=== PATIENT | female | born 1965 | race Caucasian/White ===

== ENCOUNTER 2016-12-23 08:41 | Emergency (ER) | payer SELFPAY ==
[~2016-12-23] VITALS: Ht 162.6 cm; Wt 66.0 kg
[~2016-12-23 08:41] MED LIST: BENA25TA8 PO; CETI10 PO; CINN500C7 PO; CLOB-50 TOP; CO Q200C3 PO; CRAN1TAB2 PO; DICY20TA10 PO; FLUT1SPR9; MILK1CAP; OMEG5CAP; PROBCAP4 PO; PROC2.5C PR; PSEU30TA PO; TURM500C3; ZOCO40TA PO; [UNRECOGNIZED DRUG - CODE]
[2016-12-23 08:43] VITALS: BP 112/72; PULSE 83; RESP 16; TEMP 97.8; O2SAT 100
[2016-12-23] MEDS ORDERED: CO Q10CA PO (08:53)
[2016-12-23] MEDS ORDERED: ASCO100016 PO (08:53)
[2016-12-23] MEDS ORDERED: DICY20TA10 PO (08:53)
[2016-12-23] MEDS ORDERED: MELAPOW2 PO (08:53)
[2016-12-23] MEDS ORDERED: SUDO60TA2 PO (08:53)
[2016-12-23] MEDS ORDERED: FLUT1SPR5 EACH NARE (08:53)
[2016-12-23] MEDS ORDERED: CETI10CA3 PO (08:53)
[2016-12-23] MEDS ORDERED: FISHCAP4 PO (08:53)
--- NOTE | 2016-12-23 09:07 | RADRPT ---
EXAM DATE/TIME: 12/23/2016 08:52 [facility] COMPARISON: CHEST PA & LAT, July 11, 2015, 9:20. INDICATIONS : Cough, congestion, short of breath, back pain x 1 week. MEDICAL HISTORY : Diverticulitis. Hypercholesterolemia. Irritable bowel syndrome. Asthma. Colitis. Gastritis. Smoke r. SURGICAL HISTORY : Tonsillectomy. Hysterectomy. ENCOUNTER: Initial ACUITY: 1 week PAIN SCORE: 7/10 LOCATION: posterior chest FINDINGS: PA and lateral views of the chest demonstrate a normal-sized cardiac silhouette. There is no effusion , consolidation, or pneumothorax. The bones and soft tissues demonstrate no acute abnormality. There are mild degenerative changes of the thoracic spine. CONCLUSION: No acute cardiopulmonary abnormality is identified. Karlos Hobson MD on December 23, 2016 at 9:05 Board Certified Radiologist. This report was verified electronically.
[2016-12-23] MEDS ORDERED: MEDR4PAK PO (09:29)
[2016-12-23] MEDS ORDERED: ALBU6.7H INH (09:29)
[2016-12-23] MEDS ORDERED: DOXY100C PO (09:29)
[2016-12-23] MEDS ORDERED: ALBU0.08 NEB (09:29)
[2016-12-23] MEDS ORDERED: RESP: ALBUTEROL 2.5 MG/IPRATROPIUM 0.5 MG NEB (SCH) INH ONE (09:30)
[2016-12-23] MEDS ORDERED: predniSONE 20 MG TAB PO ONE (09:30)
--- NOTE | 2016-12-23 09:30 | PD ---
HPI Chief Complaint: Respiratory Symptoms Time Seen by Provider: 08:48 Travel History International Travel<30 days: No Contact w/Intl Traveler<30days: No Traveled to known affect area: No History of Present Illness HPI C/O 1 WEEK OF DRY COUGH, NOT IMPROVING, OUT OF ALBUTEROL (HAS NEBULIZER MACHINE AT HOME). STATES THAT SHE IS A SMOKER, AND HAS DECREASED HER SMOKING DUE TO SOB /COUGH. DENIES FEVER/GRACE/N/V/D/CP/ABD PAIN PFSH Past Medical History High Cholesterol: Yes Diminished Hearing: No Diverticulitis: Yes Gastrointestinal Disorders: Yes (COLITIS, GASTRITIS) Reproductive: Yes (BACTERIAL VAGINAL INFECTION) Migraines: Yes ?: Not : 5 Para: 3 Miscarriage: 1 : 1 Past Surgical History Gynecologic Surgery: Yes (FIBROIDS) Hysterectomy: Yes (PARTIAL; HAS ONE OVARY) Tonsillectomy: Yes Social History Alcohol Use: No Tobacco Use: Yes (12 cig/day) Substance Use: No Allergies-Medications (Allergen,Severity, Reaction): Coded Allergies: Percocet (Verified Allergy, Severe, Itching, 12/23/16) Macrobid (Verified Allergy, Intermediate, ITCHING, 12/23/16) Reported Meds & Prescriptions Reported Meds & Active Scripts Active Albuterol Neb (Albuterol Sulfate) 2.5 Mg/3 Ml Neb 2.5 Mg NEB QID NEB Medrol Dosepak (Methylprednisolone) 4 Mg Dspk 4 Mg PO DIRECTED Per Pharmacist direction Doxycycline Hyclate 100 Mg Cap 100 Mg PO BID Proventil Hfa 6.7 GM Inh (Albuterol Sulfate) 90 Mcg/Act Aer 1 Puff INH Q4H PRN Reported Flonase Nasal [place] (Fluticasone Nasal [place]) 50 Mcg/Act [place] 50 Mcg EACH NARE BID Vitamin C (Ascorbic Acid) 1,000 Mg Tablet.er 1 Tab PO DAILY Melatonin (Melatonin (Bulk)) 1 Pow Pow 1 Tab PO HS Zyrtec (Cetirizine HCl) 10 Mg Capsule 1 Tab PO DAILY Co Q 10 (Coenzyme Q10 (Ubidecarenone)) 10 Mg Cap 20 Mg PO DAILY Fish Oil + D3 (Fish Oil-Cholecalciferol) 1,200-1,000 Mg-Unit Cap 360 Mg PO DAILY Dicyclomine (Dicyclomine HCl) 20 Mg Tab 20 Mg PO HS Pseudoephedrine (Pseudoephedrine HCl) 60 Mg Tab 120 Mg PO DAILY Review of Systems Except as stated in HPI: all other systems reviewed are Neg Respiratory: Positive: Cough, Wheezing Physical Exam Narrative GENERAL: SKIN: Warm and dry. HEAD: Atraumatic. Normocephalic. EYES: Pupils equal and round. No scleral icterus. No injection or drainage. ENT: No nasal bleeding or discharge. Mucous membranes pink and moist. NECK: Trachea midline. No JVD. CARDIOVASCULAR: Regular rate and rhythm. RESPIRATORY: No accessory muscle use. Clear to auscultation. Breath sounds equal bilaterally. MILD WHEEZING BILATERALLY GASTROINTESTINAL: Abdomen soft, non-tender, nondistended. Hepatic and splenic margins not palpable. MUSCULOSKELETAL: Extremities without clubbing, cyanosis, or edema. No obvious deformities. NEUROLOGICAL: Awake and alert. No obvious cranial nerve deficits. Motor grossly within normal limits. Five out of 5 muscle strength in the arms and legs. Normal speech. PSYCHIATRIC: Appropriate mood and affect; insight and judgment normal. Data Data Last Documented VS Vital Signs Date Time Temp Pulse Resp B/P Pulse Ox O2 Delivery O2 Flow Rate FiO2 12/23/16 08:43 97.8 83 16 112/72 100 Orders Chest, Pa & Lat (12/23/16 08:48) Prednisone (Deltasone) (12/23/16 09:30) Albuterol-Ipratropium Neb (Duoneb Neb) (12/23/16 09:30) MDM Medical Decision Making Medical Screen Exam Complete: Yes Emergency Medical Condition: Yes Medical Record Reviewed: Yes Differential Diagnosis PNA V BRONCHITIS V ASTHMA EXACERBATION Narrative Course xray did not reveal any e/o pna will d/c with steroid, inhaller and abx Diagnosis Primary Impression: ACUTE BRONCHTISI BRONCHOSPASM Scripts Albuterol Neb 2.5 Mg/3 Ml Neb2.5 Mg NEB QID NEB #60 NEBULE Ref 0 Prov:Vikas Olivera MD 12/23/16 Methylprednisolone Dosepak (Medrol Dosepak)4 Mg Dspk4 Mg PO DIRECTED #1 DSPK Per Pharmacist direction Prov:Vikas Olivera MD 12/23/16 Doxycycline Hyclate 100 Mg Gxt832 Mg PO BID #20 CAP Prov:Vikas Olivera MD 12/23/16 Albuterol 6.7 GM Inh (Proventil Hfa 6.7 GM Inh)90 Mcg/Act Aer1 Puff INH Q4H PRN (SHORTNESS OF BREATH) #1 INHALER Prov:Vikas Olivera MD 12/23/16 Disposition: 01 DISCHARGE HOME Condition: Stable Vikas Olivera MD Dec 23, 2016 09:30
== END 2016-12-23 10:00 | disposition home or self-care (01) ==
LOC: PHED 08:41
DX: J45.909 Unspecified asthma, uncomplicated (principal); F17.210 Nicotine dependence, cigarettes, uncomplicated
CPT/HCPCS: 71020; 94664; 99284; J7512

== ENCOUNTER 2017-06-04 09:32 | Emergency (ER) | payer OTHER ==
[~2017-06-04] VITALS: Ht 162.6 cm; Wt 68.6 kg
[~2017-06-04 09:32] MED LIST changes: +ALBU0.08 NEB; +ALBU6.7H INH; +ASCO100029 PO; -BENA25TA8 PO; -CETI10 PO; +CETI10CA3 PO; -CINN500C7 PO; -CLOB-50 TOP; +CO Q10CA PO; -CO Q200C3 PO; -CRAN1TAB2 PO; +DOXY100C PO; +FISHCAP4 PO; +FLUT1SPR5 EACH NARE; -FLUT1SPR9; +MEDR4PAK PO; +MELAPOW2 PO; -MILK1CAP; -OMEG5CAP; -PROBCAP4 PO; -PROC2.5C PR; -PSEU30TA PO; +SUDO60TA2 PO; -TURM500C3; -ZOCO40TA PO; -[UNRECOGNIZED DRUG - CODE]
[2017-06-04 09:35] VITALS: BP 114/74; PULSE 88; RESP 18; TEMP 98.1; O2SAT 97
[2017-06-04 09:49] LABS: BILIRUBIN, URINE NEG (NEG); BLOOD, URINE NEG (NEG); GLUCOSE,URINE NEG (NEG); KETONE, URINE NEG (NEG); NITRITE,URINE NEG (NEG); PH, URINE 5.5 (5.0-8.5); URINE LEUKOCYTE ESTERASE SMALL (NEG)
[2017-06-04] MEDS ORDERED: VARE.5 PO (09:50)
--- NOTE | 2017-06-04 09:50 | PD ---
HPI Chief Complaint: Complaint Time Seen by Provider: 09:47 Travel History International Travel<30 days: No Contact w/Intl Traveler<30days: No Traveled to known affect area: No History of Present Illness HPI 52 YO F presents to the ED for evaluation of ~18 hour history of urinary urgency , increased frequency and dysuria. Dysuria rated 6/10, described as burning. Exacerbated by urination. No alleviating factors reported. Gradual onset yesterday morning. Endorses mild lower abdominal pain and intermittent nausea. The patient denies vomiting, fever, chills, vaginal discharge, back pain. States symptoms are similar to previous UTIs. Treating with cranberry pills at home with no improvement in symptoms. PFSH Past Medical History High Cholesterol: Yes Diminished Hearing: No Diverticulitis: Yes Gastrointestinal Disorders: Yes (COLITIS, GASTRITIS) Reproductive: Yes (BACTERIAL VAGINAL INFECTION) Respiratory: Yes (ASTHMA) Migraines: Yes ?: Not : 5 Para: 3 Miscarriage: 1 : 1 Past Surgical History Gynecologic Surgery: Yes (FIBROIDS) Hysterectomy: Yes (PARTIAL; HAS ONE OVARY) Tonsillectomy: Yes Social History Alcohol Use: No Tobacco Use: No Substance Use: No Allergies-Medications (Allergen,Severity, Reaction): Coded Allergies: acetaminophen (Unverified Allergy, Severe, Itching, 06/04/17) oxycodone (Unverified Allergy, Severe, Itching, 06/04/17) nitrofurantoin (Unverified Allergy, Intermediate, ITCHING, 06/04/17) Reported Meds & Prescriptions Reported Meds & Active Scripts Active Keflex (Cephalexin) 500 Mg Cap 500 Mg PO Q12H 5 Days Reported Chantix (Varenicline) 0.5 Mg Tab Unknown Dose PO BIDPC Days 4-7 Vitamin C (Ascorbic Acid) 1,000 Mg Tablet.er 1 Tab PO DAILY Melatonin (Melatonin (Bulk)) 1 Pow Pow 1 Tab PO HS Review of Systems Except as stated in HPI: all other systems reviewed are Neg Physical Exam Narrative GENERAL: Well-nourished, well-developed white female in no acute distress. SKIN: Focused skin assessment warm/dry. HEAD: Normocephalic. EYES: No scleral icterus. No injection or drainage. NECK: Supple, trachea midline. No JVD or lymphadenopathy. CARDIOVASCULAR: Regular rate and rhythm without murmurs, gallops, or rubs. RESPIRATORY: Breath sounds equal bilaterally. No accessory muscle use. GASTROINTESTINAL: Abdomen soft, nondistended. Mild suprapubic tenderness. Active bowel sounds. MUSCULOSKELETAL: No cyanosis, or edema. BACK: Nontender without obvious deformity. No CVA tenderness. Data Data Last Documented VS Vital Signs Date Time Temp Pulse Resp B/P (MAP) Pulse Ox O2 Delivery O2 Flow Rate FiO2 06/04/17 09:35 98.1 88 18 114/74 (87) 97 Orders Orders Urinalysis - C+S If Indicated (06/04/17 09:34) Urine Culture (06/04/17 09:39) Ed Discharge Order (06/04/17 10:03) Labs Laboratory Tests Test 06/04/17 09:39 Urine Collection Type CLEAN CATCH Urine Color YELLOW Urine Turbidity CLEAR Urine pH 5.5 Urine Specific [place] 1.021 Urine Protein NEG mg/dL Urine Glucose (UA) NEG mg/dL Urine Ketones NEG mg/dL Urine Occult Blood NEG Urine Nitrite NEG Urine Bilirubin NEG Urine Leukocyte Esterase SMALL Urine WBC 20-24 /hpf Urine WBC Clumps FEW Urine Squamous Epithelial Cells 0-5 /hpf Urine Bacteria FEW /hpf Microscopic Urinalysis Comment CULTURE INDICATED Urine Collection Time 09:39 [facility] Medical Decision Making Medical Screen Exam Complete: Yes Emergency Medical Condition: Yes Differential Diagnosis Cystitis versus hemorrhagic cystitis versus pyelonephritis versus other Narrative Course 52 YO F presents to the ED for evaluation of ~18 hour history of urinary urgency , increased frequency and dysuria. Vitals reviewed. Mild suprapubic tenderness on exam. UA positive for leukocyte esterase, wbc's, wbc clumps and bacteria. She is prescribed Keflex 500 mg twice a day 5 days. We discussed reasons to return to the ED. She is stable and discharged home. Diagnosis Primary Impression: Urinary tract infection Qualified Codes: N30.00 - Acute cystitis without hematuria Referrals: Primary Care Physician Patient Instructions: General Instructions, Urinary Tract Infection in Women ( ED) Additional Instructions: Rest, hydrate. Take every pill antibiotic until they are all gone, even if her symptoms resolved. Follow with the primary care provider. Return to the ED for any urgent or emergent medical condition. Med/Other Pt SpecificInfo: Prescription(s) given Scripts Cephalexin (Keflex) 500 Mg Cap 500 MG PO Q12H for Infection for 5 Days, #10 CAP 0 Refills Prov: Leonel Webb MD 06/04/17 Disposition: 01 DISCHARGE HOME Condition: Stable Naa Valdez Jun 04, 2017 09:50
[2017-06-04 09:55] LABS: SQUAMOUS EPITHELIAL CELL URINE 0-5 /hpf (0-5); URINE COLOR YELLOW (YELLW/STRAW); WHITE BLOOD CELL CLUMPS FEW
[2017-06-04 09:56] LABS: BACTERIA, URINE FEW /hpf
[2017-06-04] MEDS ORDERED: CEPH-460 PO (10:01)
== END 2017-06-04 10:11 | disposition home or self-care (01) ==
LOC: PHEFT 09:32
DX: N30.00 Acute cystitis without hematuria (principal); R11.0 Nausea; R10.30 Lower abdominal pain, unspecified; E78.00 Pure hypercholesterolemia, unspecified; J45.909 Unspecified asthma, uncomplicated; B96.20 Unspecified Escherichia coli [E. coli] as the cause of diseases classified elsewhere
CPT/HCPCS: 81001; 87077; 87086; 87186; 99283

== ENCOUNTER 2017-06-22 11:53 | Emergency (ER) | payer OTHER ==
[~2017-06-22] VITALS: Ht 162.6 cm; Wt 68.0 kg
[~2017-06-22 11:53] MED LIST changes: -ALBU0.08 NEB; -ALBU6.7H INH; +CEPH-460 PO; -CETI10CA3 PO; -CO Q10CA PO; -DICY20TA10 PO; -DOXY100C PO; -FISHCAP4 PO; -FLUT1SPR5 EACH NARE; -MEDR4PAK PO; -SUDO60TA2 PO; +VARE.5 PO
[2017-06-22 12:18] VITALS: BP 132/66; PULSE 69; RESP 17; TEMP 98.7; O2SAT 98
[2017-06-22] MEDS ORDERED: PROBCAP15 (13:32)
[2017-06-22] MEDS ORDERED: FISHCAP4 PO (13:32)
[2017-06-22] MEDS ORDERED: SODIUM CHLOR 0.9% 1000 ML INJ 1,000 ML IV SCH (13:38)
--- NOTE | 2017-06-22 13:44 | PD ---
HPI Chief Complaint: Abdominal Pain Time Seen by Provider: 13:38 Travel History International Travel<30 days: No Contact w/Intl Traveler<30days: No Traveled to known affect area: No History of Present Illness HPI 52-year-old female patient presents to the ER today with 1 week history of constipation followed by a large bowel movement this morning, nausea, vomiting, and epigastric and left lower quadrant abdominal pain which she currently measures at a 7 out of 10. She denies any fevers, coughing, cold symptoms, diarrhea, or any other issues. She states that the pain has been going on the whole week and is not going away. She has taken Mylanta and different over-the- counter remedies and Bentyl as well without significant relief. Modifying Factors: None Associated Signs & Symptoms: Abdominal pain, nausea, vomiting Risk Factors: None PFSH Past Medical History High Cholesterol: Yes Diminished Hearing: No Diverticulitis: Yes Gastrointestinal Disorders: Yes (COLITIS, GASTRITIS) Reproductive: Yes (BACTERIAL VAGINAL INFECTION) Respiratory: Yes (ASTHMA) Migraines: Yes Tetanus Vaccination: > 5 Years Influenza Vaccination: No ?: Not : 5 Para: 3 Miscarriage: 1 : 1 Past Surgical History Gynecologic Surgery: Yes (FIBROIDS) Hysterectomy: Yes (PARTIAL; HAS ONE OVARY) Tonsillectomy: Yes Social History Alcohol Use: No Tobacco Use: No Substance Use: No Allergies-Medications (Allergen,Severity, Reaction): Coded Allergies: acetaminophen (Unverified Allergy, Severe, PT DENIES, 06/22/17) oxycodone (Unverified Allergy, Severe, PT DENIES, 06/22/17) nitrofurantoin (Unverified Allergy, Intermediate, ITCHING, 06/22/17) Reported Meds & Prescriptions Reported Meds & Active Scripts Active Reported Fish Oil + D3 (Fish Oil-Cholecalciferol) 1,200-1,000 Mg-Unit Cap 1 Cap PO DAILY Trubiotics (Probiotic Product) 1.5 Billion Cell Cap Chantix (Varenicline) 0.5 Mg Tab Unknown Dose PO BIDPC Days 4-7 Melatonin (Melatonin (Bulk)) 1 Pow Pow 1 Tab PO HS Review of Systems Except as stated in HPI: all other systems reviewed are Neg Physical Exam Narrative GENERAL: Well-developed middle age female patient currently in mild distress. Awake and oriented 3. SKIN: Focused skin assessment warm/dry. HEAD: Atraumatic. Normocephalic. EYES: Pupils equal and round. No scleral icterus. No injection or drainage. ENT: No nasal bleeding or discharge. Mucous membranes pink and moist. NECK: Trachea midline. No JVD. Supple. CARDIOVASCULAR: Regular rate and rhythm. No murmur appreciated. RESPIRATORY: No accessory muscle use. Clear to auscultation. Breath sounds equal bilaterally. GASTROINTESTINAL: Abdomen soft, epigastric tenderness and mild left lower quadrant and right lower quadrant tenderness without guarding or rebound, nondistended. Hepatic and splenic margins not palpable. MUSCULOSKELETAL: No obvious deformities. No clubbing. No cyanosis. No edema. NEUROLOGICAL: Awake and alert. No obvious cranial nerve deficits. Motor grossly within normal limits. Normal speech. PSYCHIATRIC: Appropriate mood and affect; insight and judgment normal. Data Data Last Documented VS Vital Signs Date Time Temp Pulse Resp B/P (MAP) Pulse Ox O2 Delivery O2 Flow Rate FiO2 06/22/17 14:23 16 99 Room Air 06/22/17 12:18 98.7 69 132/66 (88) Orders Orders Complete Blood Count With Diff (06/22/17 13:38) Comprehensive Metabolic Panel (06/22/17 13:38) Lipase (06/22/17 13:38) Urinalysis - C+S If Indicated (06/22/17 13:38) Ct Abd/Pel W Iv Contrast(Rout) (06/22/17 13:38) Iv Access Insert/Monitor (06/22/17 13:38) Ecg Monitoring (06/22/17 13:38) Oximetry (06/22/17 13:38) Morphine Inj (Morphine Inj) (06/22/17 13:45) Ondansetron Inj (Zofran Inj) (06/22/17 13:45) Sodium Chlor 0.9% 1000 Ml Inj (Ns 1000 M (06/22/17 13:38) Sodium Chloride 0.9% Flush (Ns Flush) (06/22/17 13:45) Iohexol 350 Inj (Omnipaque 350 Inj) (06/22/17 14:43) Labs Laboratory Tests Test 06/22/17 13:50 White Blood Count 6.9 TH/MM3 Red Blood Count 4.21 MIL/MM3 Hemoglobin 12.7 GM/DL Hematocrit 39.7 % Mean Corpuscular Volume 94.3 FL Mean Corpuscular Hemoglobin 30.3 PG Mean Corpuscular Hemoglobin Concent 32.1 % Red Cell Distribution Width 12.9 % Platelet Count 249 TH/MM3 Mean Platelet Volume 8.3 FL Neutrophils (%) (Auto) 54.4 % Lymphocytes (%) (Auto) 29.8 % Monocytes (%) (Auto) 12.4 % Eosinophils (%) (Auto) 2.9 % Basophils (%) (Auto) 0.5 % Neutrophils # (Auto) 3.8 TH/MM3 Lymphocytes # (Auto) 2.0 TH/MM3 Monocytes # (Auto) 0.8 TH/MM3 Eosinophils # (Auto) 0.2 TH/MM3 Basophils # (Auto) 0.0 TH/MM3 CBC Comment DIFF FINAL Differential Comment Urine Collection Type CLEAN CATCH Urine Color YELLOW Urine Turbidity SLIGHT Urine pH 7.0 Urine Specific [place] 1.018 Urine Protein NEG mg/dL Urine Glucose (UA) NEG mg/dL Urine Ketones NEG mg/dL Urine Occult Blood NEG Urine Nitrite NEG Urine Bilirubin NEG Urine Leukocyte Esterase NEG Urine Squamous Epithelial Cells 6-8 /hpf Urine Amorphous Sediment LARGE Microscopic Urinalysis Comment CULT NOT INDICATED Urine Collection Time 1350 Blood Urea Nitrogen 19 MG/DL Creatinine 0.70 MG/DL Random Glucose 90 MG/DL Total Protein 7.5 GM/DL Albumin 3.8 GM/DL Calcium Level 9.2 MG/DL Alkaline Phosphatase 86 U/L Aspartate Amino Transf (AST/SGOT) 21 U/L Alanine Aminotransferase (ALT/SGPT) 29 U/L Total Bilirubin 0.2 MG/DL Sodium Level 140 MEQ/L Potassium Level 4.2 MEQ/L Chloride Level 106 MEQ/L Carbon Dioxide Level 29.7 MEQ/L Anion Gap 4 MEQ/L Estimat Glomerular Filtration Rate 88 ML/MIN Lipase 154 U/L [facility] Medical Decision Making Medical Screen Exam Complete: Yes Emergency Medical Condition: Yes Medical Record Reviewed: Yes Interpretation(s) Laboratory Tests Test 06/22/17 13:50 Monocytes (%) (Auto) 12.4 % (0.0-8.0) Urine Squamous Epithelial Cells 6-8 /hpf (0-5) Blood Urea Nitrogen 19 MG/DL (7-18) Anion Gap 4 MEQ/L (5-15) Estimat Glomerular Filtration Rate 88 ML/MIN (>89) Last 24 hours Impressions Abdomen/Pelvis CT 06/22/17 0988 Signed Impressions: Service Date/Time: Thursday, June 22, 2017 14:36 - CONCLUSION: 1. No acute inflammatory process. Jeffrey Santamaria MD Differential Diagnosis Abdominal pain, nausea and vomiting: Gastritis versus gastroenteritis versus cholecystitis versus diverticulitis versus UTI versus appendicitis Narrative Course Lab work is fairly unremarkable. Influenza testing is negative. CAT scan did not show any signs of acute intra-abdominal processes. At this point, my plan would be to release her with symptomatic relief or pain and follow-up to primary care physician. The plan was discussed with her and she states understanding. Diagnosis Primary Impression: Abdominal pain Med/Other Pt SpecificInfo: Prescription(s) given Scripts Dicyclomine (Bentyl) 10 Mg Cap 10 MG PO TID Y for Bowel Management, #15 CAP 0 Refills Prov: Alan Llanos MD 06/22/17 Disposition: 01 DISCHARGE HOME Condition: Stable Alan Llanos MD Jun 22, 2017 13:44
[2017-06-22] MEDS ORDERED: SODIUM CHLORIDE 0.9% FLUSH 10 ML FLUSH IV FLUSH PRN (13:45)
[2017-06-22] MEDS ORDERED: MORPHINE SULFATE 4 MG/ML INJ IV PUSH ONE (13:45)
[2017-06-22] MEDS ORDERED: ONDANSETRON HCL 4 MG/2 ML VIAL IVP ONE (13:45)
[2017-06-22 14:02] LABS: AUTOMATED NEUTROPHIL # 3.8 TH/MM3 (1.8-7.7); BASOPHIL % 0.5 % (0.0-2.0); EOSINOPHIL # 0.2 TH/MM3 (0-0.4); EOSINOPHIL % 2.9 % (0.0-4.0); HEMATOCRIT 39.7 % (35.0-46.0); HEMOGLOBIN 12.7 GM/DL (11.6-15.3); LYMPH % 29.8 % (9.0-44.0); MEAN CELL VOLUME 94.3 FL (80.0-100.0); MEAN CORPUSCULAR HEMOGLOBIN 30.3 PG (27.0-34.0); MEAN CORPUSCULAR HGB CONC 32.1 % (32.0-36.0); MEAN PLATELET VOLUME 8.3 FL (7.0-11.0); MONO % 12.4 % (0.0-8.0); MONOCYTE # 0.8 TH/MM3 (0-0.9); NEUT % 54.4 % (16.0-70.0); PLATELET COUNT 249 TH/MM3 (150-450); RED BLOOD COUNT 4.21 MIL/MM3 (4.00-5.30); RED CELL DISTRIBUTION WIDTH 12.9 % (11.6-17.2); WHITE BLOOD COUNT 6.9 TH/MM3 (4.0-11.0)
[2017-06-22 14:09] LABS: BILIRUBIN, URINE NEG (NEG); BLOOD, URINE NEG (NEG); GLUCOSE,URINE NEG (NEG); KETONE, URINE NEG (NEG); NITRITE,URINE NEG (NEG); URINE LEUKOCYTE ESTERASE NEG (NEG)
[2017-06-22 14:12] LABS: CHLORIDE 106 MEQ/L (98-107); SODIUM (NA) 140 MEQ/L (136-145)
[2017-06-22 14:13] LABS: URINE COLOR YELLOW (YELLW/STRAW)
[2017-06-22 14:15] LABS: CALCIUM 9.2 MG/DL (8.5-10.1)
[2017-06-22 14:16] LABS: ALBUMIN 3.8 GM/DL (3.4-5.0); BICARBONATE 29.7 MEQ/L (21.0-32.0); BLOOD UREA NITROGEN 19 MG/DL (7-18); GLUCOSE,RANDOM 90 MG/DL (74-106)
[2017-06-22 14:18] LABS: ALT (GPT) 29 U/L (10-53)
[2017-06-22 14:19] LABS: AST (GOT) 21 U/L (15-37); GLOMERULAR FILTRATION RATE 88 ML/MIN (>89)
[2017-06-22 14:20] LABS: TOTAL BILIRUBIN ADULT 0.2 MG/DL (0.2-1.0); TOTAL PROTEIN 7.5 GM/DL (6.4-8.2)
[2017-06-22 14:21] LABS: ALKALINE PHOSPHATASE 86 U/L (45-117)
[2017-06-22 14:22] LABS: AMORPHOUS SEDIMENT, URINE LARGE
[2017-06-22 14:23] VITALS: RESP 16; O2SAT 99
[2017-06-22] MEDS ORDERED: IOHEXOL 350 MG/ML 10 ML VIAL (for RAD DIAG) IVCONTRAST ONE (14:43)
--- NOTE | 2017-06-22 14:55 | RADRPT ---
EXAM DATE/TIME: 06/22/2017 14:36 [facility] COMPARISON: CT ABDOMEN & PELVIS W CONTRAST, July 01, 2015, 11:26. INDICATIONS : Constipation x 1 week. Epigastric and left lower quadrant pain with nausea today. IV CONTRAST: 85 cc Omnipaque 350 (iohexol) IV ORAL CONTRAST: No oral contrast ingested. RADIATION DOSE: 8.71 CTDIvol (mGy) MEDICAL HISTORY : Irritiable bowel syndrome. Diverticulitis. Gastritis. Colitis. Asthma. SURGICAL HISTORY : Hysterectomy. ENCOUNTER: Initial ACUITY: 1 week PAIN SCALE: 8/10 LOCATION: Left lower quadrant TECHNIQUE: Volumetric scanning of the abdomen and pelvis was performed. Using automated exposure control and ad justment of the mA and/or kV according to patient size, radiation dose was kept as low as reasonably achievable to obtain optimal diagnostic quality images. DICOM format image data is available electro nically for review and comparison. FINDINGS: LOWER LUNGS: The visualized lower lungs are clear. LIVER: Homogeneous density without lesion. There is no dilation of the biliary tree. No calcified gallston es. SPLEEN: Normal size without lesion. PANCREAS: Within normal limits. KIDNEYS: Normal in size and shape. There is no mass, stone or hydronephrosis. ADRENAL GLANDS: Within normal limits. VASCULAR: There is no aortic aneurysm. BOWEL/MESENTERY: The stomach, small bowel, and colon demonstrate no acute abnormality. There is no free intraperitone al air or fluid. ABDOMINAL WALL: Within normal limits. RETROPERITONEUM: There is no lymphadenopathy. BLADDER: No wall thickening or mass. REPRODUCTIVE: Hysterectomy. INGUINAL: There is no lymphadenopathy or hernia. MUSCULOSKELETAL: Within normal limits for patient age. CONCLUSION: 1. No acute inflammatory process. Jeffrey Santamaria MD on June 22, 2017 at 14:46 Board Certified Radiologist. This report was verified electronically.
[2017-06-22] MEDS ORDERED: DICY10 PO (15:04)
[2017-06-22 15:21] VITALS: RESP 17
[2017-06-22 15:44] VITALS: BP 115/75
== END 2017-06-22 15:53 | disposition home or self-care (01) ==
LOC: PHED 11:53
DX: R10.32 Left lower quadrant pain (principal); R10.13 Epigastric pain; R11.2 Nausea with vomiting, unspecified
CPT/HCPCS: 74177; 80053; 81001; 83690; 85025; 96361; 96374; 96375; 99285; J2270; J2405; J7030; Q9967

== ENCOUNTER 2017-06-30 18:01 | Emergency (ER) | payer OTHER ==
[~2017-06-30] VITALS: Ht 162.6 cm; Wt 70.0 kg
[~2017-06-30 18:01] MED LIST changes: -ASCO100029 PO; -CEPH-460 PO; +DICY10 PO; +FISHCAP4 PO; +PROBCAP15
[2017-06-30 18:04] VITALS: BP 198/98; PULSE 82; RESP 18; TEMP 97.9; O2SAT 100
[2017-06-30] MEDS ORDERED: SODIUM CHLOR 0.9% 1000 ML INJ 1,000 ML IV SCH (18:06)
[2017-06-30 18:07] VITALS: O2SAT 97
--- NOTE | 2017-06-30 18:09 | PD ---
HPI Chief Complaint: Abdominal Pain Time Seen by Provider: 18:04 Travel History International Travel<30 days: No Contact w/Intl Traveler<30days: No Traveled to known affect area: No History of Present Illness HPI 52-year-old female brought in by ambulance for evaluation of abdominal pain. Patient reports lower abdominal pain that described as "gas pain." Patient is writhing in pain and reports her pain is severe, constant, worse with movements. No vomiting or diarrhea. History of hysterectomy and unilateral oophorectomy. She is requesting pain medicine. Chart review shows that the patient was here one week ago with similar complaints and had labs that were reassuring and a CT scan that showed no acute pathology. Apparently the patient was also seen at [facility] last night and was treated and discharged from the emergency department. She denies vaginal bleeding or discharge. PFSH Past Medical History High Cholesterol: Yes Diminished Hearing: No Diverticulitis: Yes Gastrointestinal Disorders: Yes (COLITIS, GASTRITIS) Reproductive: Yes (BACTERIAL VAGINAL INFECTION) Respiratory: Yes (ASTHMA) Migraines: Yes ?: Not : 5 Para: 3 Miscarriage: 1 : 1 Past Surgical History Gynecologic Surgery: Yes (FIBROIDS) Hysterectomy: Yes Tonsillectomy: Yes Social History Alcohol Use: No Tobacco Use: No Substance Use: No Allergies-Medications (Allergen,Severity, Reaction): Coded Allergies: acetaminophen (Unverified Allergy, Severe, PT DENIES, 06/30/17) oxycodone (Unverified Allergy, Severe, PT DENIES, 06/30/17) nitrofurantoin (Unverified Allergy, Intermediate, ITCHING, 06/30/17) Reported Meds & Prescriptions Reported Meds & Active Scripts Active Bentyl (Dicyclomine HCl) 10 Mg Cap 10 Mg PO TID PRN Reported Metoclopramide (Metoclopramide HCl) 10 Mg Tab 10 Mg PO QID Phenergan (Promethazine HCl) 25 Mg Tablet 25 Mg PO Q6H PRN Meclizine (Meclizine HCl) 25 Mg Tab 25 Mg PO DIRECTED PRN Review of Systems Except as stated in HPI: all other systems reviewed are Neg Physical Exam Narrative GENERAL: Well-developed, well-nourished, writhing in pain, SKIN: Focused skin assessment warm/dry. No rash. HEAD: Atraumatic. Normocephalic. EYES: Pupils equal and round. No scleral icterus. No injection or drainage. ENT: No nasal bleeding or discharge. Mucous membranes pink and moist. NECK: Trachea midline. No JVD. CARDIOVASCULAR: Regular rate and rhythm. RESPIRATORY: No accessory muscle use. Clear to auscultation. Breath sounds equal bilaterally. GASTROINTESTINAL: Abdomen soft, nondistended. Mild diffuse tenderness without peritoneal signs. No hernias. Normal bowel sounds. MUSCULOSKELETAL: No obvious deformities. No clubbing. No cyanosis. No edema. NEUROLOGICAL: Awake and alert. No obvious cranial nerve deficits. Motor grossly within normal limits. Normal speech. Data Data Last Documented VS Vital Signs Date Time Temp Pulse Resp B/P (MAP) Pulse Ox O2 Delivery O2 Flow Rate FiO2 06/30/17 18:50 72 18 156/92 (113) 100 Room Air 06/30/17 18:04 97.9 Orders Orders Complete Blood Count With Diff (06/30/17 18:06) Comprehensive Metabolic Panel (06/30/17 18:06) Lipase (06/30/17 18:06) Lactic Acid (06/30/17 18:06) Prothrombin Time / Inr (Pt) (06/30/17 18:06) Act Partial Throm Time (Ptt) (06/30/17 18:06) Urinalysis - C+S If Indicated (06/30/17 18:06) Iv Access Insert/Monitor (06/30/17 18:06) Ecg Monitoring (06/30/17 18:06) Oximetry (06/30/17 18:06) Sodium Chlor 0.9% 1000 Ml Inj (Ns 1000 M (06/30/17 18:06) Sodium Chloride 0.9% Flush (Ns Flush) (06/30/17 18:15) Morphine Inj (Morphine Inj) (06/30/17 18:15) Metoclopramide Inj (Reglan Inj) (06/30/17 18:15) Ct Abd/Pel W Iv Contrast(Rout) (06/30/17 18:49) Iohexol 350 Inj (Omnipaque 350 Inj) (06/30/17 19:50) Cath For Specimen (06/30/17 20:18) Ciprofloxacin (Cipro) (06/30/17 21:00) Metronidazole (Flagyl) (06/30/17 21:00) Labs Laboratory Tests Test 06/30/17 18:20 White Blood Count 8.6 TH/MM3 Red Blood Count 4.51 MIL/MM3 Hemoglobin 13.9 GM/DL Hematocrit 42.0 % Mean Corpuscular Volume 93.3 FL Mean Corpuscular Hemoglobin 30.8 PG Mean Corpuscular Hemoglobin Concent 33.0 % Red Cell Distribution Width 12.4 % Platelet Count 248 TH/MM3 Mean Platelet Volume 8.3 FL Neutrophils (%) (Auto) 67.1 % Lymphocytes (%) (Auto) 21.5 % Monocytes (%) (Auto) 9.2 % Eosinophils (%) (Auto) 1.4 % Basophils (%) (Auto) 0.8 % Neutrophils # (Auto) 5.8 TH/MM3 Lymphocytes # (Auto) 1.8 TH/MM3 Monocytes # (Auto) 0.8 TH/MM3 Eosinophils # (Auto) 0.1 TH/MM3 Basophils # (Auto) 0.1 TH/MM3 CBC Comment DIFF FINAL Differential Comment Prothrombin Time 10.3 SEC Prothromb Time International Ratio 1.0 RATIO Activated Partial Thromboplast Time 26.1 SEC Blood Urea Nitrogen 18 MG/DL Creatinine 0.97 MG/DL Random Glucose 93 MG/DL Total Protein 7.8 GM/DL Albumin 4.0 GM/DL Calcium Level 9.9 MG/DL Alkaline Phosphatase 88 U/L Aspartate Amino Transf (AST/SGOT) 19 U/L Alanine Aminotransferase (ALT/SGPT) 25 U/L Total Bilirubin 0.3 MG/DL Sodium Level 137 MEQ/L Potassium Level 4.2 MEQ/L Chloride Level 105 MEQ/L Carbon Dioxide Level 26.5 MEQ/L Anion Gap 6 MEQ/L Estimat Glomerular Filtration Rate 60 ML/MIN Lactic Acid Level 1.7 mmol/L Lipase 149 U/L MDM Medical Decision Making Medical Screen Exam Complete: Yes Emergency Medical Condition: Yes Differential Diagnosis Chronic abdominal pain, colitis, diverticulitis, appendicitis, cystitis, UTI, ovarian cyst, ovarian torsion Narrative Course Vital signs reviewed. CBC is unremarkable. CMP is unremarkable. Lactic acid is 1.7. Lipase is 149. CT abdomen pelvis: CONCLUSION: Moderate severity colitis, fairly diffuse but with a slight left-sided predominance. This is presumably infectious or inflammatory. The findings are not typical of diverticulitis. No abscess, perforation or obstruction. The rest of the CT is within normal limits. The patient was made aware of all findings and provided a copy of her CT abdomen pelvis report. She had a large bowel movement in the emergency department and was given a dose of morphine and feels significantly improved. She is resting comfortably. I gave her the option of being admitted for antibiotic therapy for discharge home with oral antibiotics and pain medication. She prefers to be discharged home. She states that she has an appointment with a colorectal surgeon on 07/12/17. I will also give her the name of the pc network technician inventory control clerk with whom to follow-up with. She was advised to follow-up with a primary care physician this week as well. She was informed on when to return to the emergency department. She verbalizes understanding and agreement with plan. Diagnosis Primary Impression: Colitis Referrals: Luzmaria Monroy MD 3 days Primary Care Physician 3 days Additional Instructions: Follow-up with a primary care physician this week. Follow-up with pc network technician Dr. Monroy this week. Take antibiotics as prescribed. Return to the emergency department for worsening symptoms or any other concerns. Scripts Oxycodone-Acetaminophen (Percocet) 10-325 mg Tab 1 TAB PO Q6H Y for PAIN, #12 TAB 0 Refills Prov: Larry Kimble MD 06/30/17 Metronidazole (Flagyl) 500 Mg Tab 500 MG PO BID for Infection for 10 Days, #20 TAB 0 Refills Prov: Larry Kimble MD 06/30/17 Ciprofloxacin (Cipro) 500 Mg Tab 500 MG PO BID for Infection for 10 Days, #20 TAB 0 Refills Prov: Larry Kimble MD 06/30/17 Disposition: 01 DISCHARGE HOME Condition: Stable Larry Kimble MD Jun 30, 2017 18:09
[2017-06-30] MEDS ORDERED: METOCLOPRAMIDE HCL 10 MG/2 ML VIAL IV PUSH ONE (18:15)
[2017-06-30] MEDS ORDERED: MORPHINE SULFATE 2 MG/ML INJ IV PUSH ONE (18:15)
[2017-06-30] MEDS ORDERED: SODIUM CHLORIDE 0.9% FLUSH 10 ML FLUSH IV FLUSH PRN (18:15)
[2017-06-30 18:39] LABS: AUTOMATED NEUTROPHIL # 5.8 TH/MM3 (1.8-7.7); BASOPHIL # 0.1 TH/MM3 (0-0.2); BASOPHIL % 0.8 % (0.0-2.0); EOSINOPHIL # 0.1 TH/MM3 (0-0.4); EOSINOPHIL % 1.4 % (0.0-4.0); HEMOGLOBIN 13.9 GM/DL (11.6-15.3); LYMPH % 21.5 % (9.0-44.0); LYMPHOCYTE # 1.8 TH/MM3 (1.0-4.8); MEAN CELL VOLUME 93.3 FL (80.0-100.0); MEAN CORPUSCULAR HEMOGLOBIN 30.8 PG (27.0-34.0); MEAN PLATELET VOLUME 8.3 FL (7.0-11.0); MONO % 9.2 % (0.0-8.0); MONOCYTE # 0.8 TH/MM3 (0-0.9); NEUT % 67.1 % (16.0-70.0); PLATELET COUNT 248 TH/MM3 (150-450); RED BLOOD COUNT 4.51 MIL/MM3 (4.00-5.30); RED CELL DISTRIBUTION WIDTH 12.4 % (11.6-17.2); WHITE BLOOD COUNT 8.6 TH/MM3 (4.0-11.0)
[2017-06-30 18:47] LABS: CHLORIDE 105 MEQ/L (98-107); SODIUM (NA) 137 MEQ/L (136-145)
[2017-06-30 18:50] VITALS: BP 156/92; PULSE 72; RESP 18; O2SAT 100
[2017-06-30 18:50] LABS: CALCIUM 9.9 MG/DL (8.5-10.1)
[2017-06-30 18:51] LABS: BICARBONATE 26.5 MEQ/L (21.0-32.0); BLOOD UREA NITROGEN 18 MG/DL (7-18); GLUCOSE,RANDOM 93 MG/DL (74-106)
[2017-06-30 18:52] LABS: PROTHROMBIN TIME - PATIENT 10.3 SEC (9.8-11.6)
[2017-06-30 18:53] LABS: ALT (GPT) 25 U/L (10-53)
[2017-06-30] MEDS ORDERED: METO10TA PO (18:53)
[2017-06-30] MEDS ORDERED: PROM25TA10 PO (18:53)
[2017-06-30] MEDS ORDERED: MECL-62 PO (18:53)
[2017-06-30 18:54] LABS: AST (GOT) 19 U/L (15-37); CREATININE 0.97 MG/DL (0.50-1.00); GLOMERULAR FILTRATION RATE 60 ML/MIN (>89)
[2017-06-30 18:55] LABS: TOTAL BILIRUBIN ADULT 0.3 MG/DL (0.2-1.0); TOTAL PROTEIN 7.8 GM/DL (6.4-8.2)
[2017-06-30 18:56] LABS: ALKALINE PHOSPHATASE 88 U/L (45-117)
[2017-06-30] MEDS ORDERED: IOHEXOL 350 MG/ML 10 ML VIAL (for RAD DIAG) IVCONTRAST ONE (19:50)
[2017-06-30 20:10] VITALS: BP 148/88; PULSE 72; RESP 16; O2SAT 99
--- NOTE | 2017-06-30 20:18 | RADRPT ---
EXAM DATE/TIME: 06/30/2017 19:47 [facility] COMPARISON: CT ABDOMEN & PELVIS W CONTRAST, June 22, 2017, 14:36. INDICATIONS : Abdominal pain and diarrhea. IV CONTRAST: 94 cc Omnipaque 350 (iohexol) IV ORAL CONTRAST: No oral contrast ingested. RADIATION DOSE: 8.42 CTDIvol (mGy) MEDICAL HISTORY : Irritiable bowel syndrome. Diverticulitis. SURGICAL HISTORY : Hysterectomy. ENCOUNTER: Initial ACUITY: 3 days PAIN SCALE: 6/10 LOCATION: abdomen TECHNIQUE: Volumetric scanning of the abdomen and pelvis was performed. Using automated exposure control and ad justment of the mA and/or kV according to patient size, radiation dose was kept as low as reasonably achievable to obtain optimal diagnostic quality images. DICOM format image data is available electro nically for review and comparison. FINDINGS: LOWER LUNGS: The visualized lower lungs are clear. LIVER: Homogeneous density without lesion. There is no dilation of the biliary tree. No calcified gallston es. SPLEEN: Normal size without lesion. PANCREAS: Within normal limits. KIDNEYS: Normal in size and shape. There is no mass, stone or hydronephrosis. ADRENAL GLANDS: Within normal limits. VASCULAR: There is no aortic aneurysm. BOWEL/MESENTERY: There is long segment wall thickening of the descending and sigmoid portions of the colon. A few scat tered diverticula are present but do not appear to be acutely contributory. Similar but slightly mild er findings are seen of the right side of the colon. No abscess, perforation or obstruction. ABDOMINAL WALL: Within normal limits. RETROPERITONEUM: There is no lymphadenopathy. BLADDER: No wall thickening or mass. REPRODUCTIVE: Within normal limits. INGUINAL: There is no lymphadenopathy or hernia. MUSCULOSKELETAL: No acute bony abnormality demonstrated. CONCLUSION: Moderate severity colitis, fairly diffuse but with a slight left-sided predominance. This is presumab ly infectious or inflammatory. The findings are not typical of diverticulitis. No abscess, perforatio n or obstruction. The rest of the CT is within normal limits. Karlos Carey MD on June 30, 2017 at 20:14 Board Certified Radiologist. This report was verified electronically.
[2017-06-30] MEDS ORDERED: CIPR-9 PO (20:55)
[2017-06-30] MEDS ORDERED: METR-1 PO (20:55)
[2017-06-30] MEDS ORDERED: PERC10TA27 PO (20:55)
[2017-06-30] MEDS ORDERED: CIPROFLOXACIN 500 MG TAB PO ONE (21:00)
[2017-06-30] MEDS ORDERED: metroNIDAZOLE 500 MG TAB PO ONE (21:00)
[2017-06-30 21:14] VITALS: BP 153/76
== END 2017-06-30 21:27 | disposition home or self-care (01) ==
LOC: PHED 18:01
DX: K52.9 Noninfective gastroenteritis and colitis, unspecified (principal); E78.00 Pure hypercholesterolemia, unspecified; J45.909 Unspecified asthma, uncomplicated; Z88.6 Allergy status to analgesic agent; Z88.5 Allergy status to narcotic agent; Z88.8 Allergy status to other drugs, medicaments and biological substances
CPT/HCPCS: 74177; 80053; 83605; 83690; 85025; 85610; 85730; 96361; 96374; 96375; 99284; J2270; J2765; J7030; Q9967